=== PATIENT | female | born 1935 | race Caucasian/White ===

== ENCOUNTER 2017-09-13 10:50 | Outpatient (CLI) | payer MEDICARE ==
--- NOTE | 2017-09-13 14:55 | Diagnostic Imaging Report ---
Indication: Reason For Exam: COUGH Technique: 2 views of the chest Comparison: 10/15/2014 Findings: The lungs and pleural spaces are clear. The heart size is normal. The aorta is tortuous and calcified. There are mitral annular calcifications. The bones are osteoporotic, otherwise unremarkable. No significant change Impression: No acute process
== END 2017-09-13 12:50 | disposition home or self-care (01) ==
LOC: RAD 10:50
DX: R05 Cough (principal)
CPT/HCPCS: 71020

== ENCOUNTER 2017-10-01 11:48 | Outpatient (CLI) | payer MEDICARE ==
--- NOTE | 2017-10-02 11:38 | Diagnostic Imaging Report ---
Indication: Cough Technique: CHEST 2 VIEWS Comparison: 09/13/2017 Findings: Cardiac size within normal limits. Mediastinal contours are sharp. Atherosclerotic calcifications noted in the aorta and there is no focal airspace consolidation, pleural effusion or pneumothorax. Unchanged elevation of the right hemidiaphragm. There is osteopenia with scoliosis and multilevel degenerative change of the spine. No acute osseous abnormality seen. Impression: No radiographic evidence of acute cardiopulmonary disease.
== END 2017-10-01 13:48 | disposition home or self-care (01) ==
LOC: RAD 11:48
DX: R05 Cough (principal); R07.89 Other chest pain
CPT/HCPCS: 71046

== ENCOUNTER 2020-05-24 10:33 | Outpatient (CLI) | payer MEDICARE ==
[~2020-05-24] VITALS: Ht 152.4 cm; Wt 65.3 kg
--- NOTE | 2020-05-24 12:15 | Consultation ---
DATE OF CONSULTATION: 05/24/2020 CHIEF COMPLAINT: Abdominal pain. HISTORY OF PRESENT ILLNESS: The patient is an 84-year-old female with multiple medical problems, which I will dictate in a second. In the office complaining of left lower quadrant abdominal pain. Last colonoscopy in 2018, she had 8 polyps. According to her, the polyps were benign. She had a CT of the abdomen and pelvis done at [facility] which showed evidence of possible diffuse ileus. The patient has been going to the bathroom every day without any problem with constipation. No nausea. No vomiting. No dysphagia. No odynophagia. No melena. No hematochezia. PAST MEDICAL HISTORY: 1. Palpitations. 2. Hypertension. 3. Hyperlipidemia. 4. Diabetes. 5. UTI. PAST SURGICAL HISTORY: History of breast reduction. MEDICATIONS: Currently on Eliquis. Please see medication reconciliation list. ALLERGIES: To codeine. FAMILY HISTORY: No family history of GI malignancies. SOCIAL HISTORY: The patient denies any alcohol. She is a former smoker. REVIEW OF SYSTEMS: Positive for abdominal pain, GERD. PHYSICAL EXAMINATION: VITAL SIGNS: Temperature 98, blood pressure 131/59, pulse 65, respirations 20. HEENT: Normocephalic and atraumatic. Sclerae anicteric. NECK: Supple. No evidence of obvious lymphadenopathy. CARDIOVASCULAR: Regular rate and rhythm. Plus S1 and S2. LUNGS: Clear to auscultation bilaterally. ABDOMEN: Positive bowel sounds. . Minimal tenderness to palpation in the lower quadrant. No rebound. No guarding. No peritoneal sign. EXTREMITIES: No cyanosis. No clubbing. No edema. LABORATORY AND DIAGNOSTIC DATA: Labs not available. CT reviewed from [facility]. ASSESSMENT/PLAN: The patient is an 84-year-old female with chronic mild 7 to 10 left lower quadrant pain without any alarming sign and symptoms. CT from [facility] reviewed, did not show any obvious obstruction. The patient was offered another colonoscopy, at this time she is refusing. Plan to start treatment with Xifaxan 550 for 14 days. The patient to come back after treatment to see if there is any improvement. I want to thank, Dr. Freddy Cosme for this kind referral. Cipriano Chata Bahena DR: Christopher JOB#: [id number] CC: Freddy Cosme M.D.; Fax#: [phone]
== END 2020-05-24 12:33 | disposition home or self-care (01) ==
LOC: PAN 10:33
DX: R10.32 Left lower quadrant pain (principal); I10 Essential (primary) hypertension; E78.5 Hyperlipidemia, unspecified; E11.9 Type 2 diabetes mellitus without complications; Z79.01 Long term (current) use of anticoagulants; Z88.6 Allergy status to analgesic agent; Z86.010 Personal history of colon polyps; K21.9 Gastro-esophageal reflux disease without esophagitis
CPT/HCPCS: G0463